=== PATIENT | female | born 1990 | race Hispanic/Latino ===

== ENCOUNTER 2019-11-03 14:55 | Emergency (ER) | payer SELFPAY ==
[2019-11-03] MEDS ORDERED: KETOROLAC 30 MG/ML INJ ONE (15:54)
[2019-11-03 16:22] VITALS: BP 159/101; TEMP 98.5; O2SAT 98
--- NOTE | 2019-11-03 20:15 | ER ---
Nurse's Notes [facility] Name: Kaitlin Marrufo Age: 29 yrs Sex: Female : 1990 Arrival Date: 11/03/2019 Time: 14:59 Bed 23 Private MD: Diagnosis: Jaw pain-left upper and left lower Presentation: 11/02 15:12 Chief complaint: Patient states: Left sided tooth and gum pain to upper and lower side ll1 for 2 months intermittently. Pain is severe today. Coronavirus screen: Proceed with normal triage. Patient denies a cough. Patient denies shortness of breath or difficulty breathing. Patient denies measured and/or subjective temperature greater than 100.4F prior to today's visit. Patient denies travel on a cruise ship or to a country the [facility] currently lists as an affected area. Patient denies contact with known and/or suspected case of COVID-19. Ebola Screen: Patient denies travel to an Ebola-affected area in the 21 days before illness onset. Initial Sepsis Screen: Does the patient meet any 2 criteria? No. Patient's initial sepsis screen is negative. Risk Assessment: Do you want to hurt yourself or someone else? Patient reports no desire to harm self or others. Onset of symptoms was October 17, 2019. 15:12 Method Of Arrival: Ambulatory ll1 15:12 Acuity: KARI 4 ll1 Historical: - Allergies: 15:14 No Known Allergies; ll1 - PSHx: 15:14 None; ll1 - Immunization history:: Adult Immunizations up to date. - Social history:: Smoking status: Patient reports the use of cigarette tobacco products, smokes one-half pack cigarettes per day, Patient uses alcohol, only on a social basis. street drugs, marijuana, Patient/guardian denies using IV drugs. Screenin:29 Abuse screen: Denies threats or abuse. Denies injuries from another. Nutritional ss screening: No deficits noted. Tuberculosis screening: Never had TB. Fall Risk None identified. Assessment: 15:29 General: Appears in no apparent distress. comfortable, Behavior is calm, cooperative. ss Pain: Complains of pain in upper left second molar and lower left second molar Pain currently is 8 out of 10 on a pain scale. Quality of pain is described as aching. Neuro: Level of Consciousness is awake, alert, obeys commands, Oriented to person, place, time, situation. Cardiovascular: Capillary refill < 3 seconds is brisk in bilateral fingers. Respiratory: Airway is patent Respiratory effort is even, unlabored, Respiratory pattern is regular, symmetrical. GI: Patient currently denies diarrhea, nausea, vomiting. : No signs and/or symptoms were reported regarding the genitourinary system. EENT: Nares are clear Oral mucosa is moist. Poor dentition noted. Throat is clear. Derm: Skin is intact, is healthy with good turgor, Skin is dry, Skin is pink, warm \T\ dry. normal. Musculoskeletal: Circulation, motion, and sensation intact. Range of motion: intact in all extremities, Swelling absent. Vital Signs: 15:12 BP 159 / 101; Pulse 77; Resp 16; Temp 98.5; Pulse Ox 98% ; Pain 9/10; ll1 ED Course: 14:59 Patient arrived in ED. fj1 15:14 Triage completed. 1 15:14 Arm band placed on Patient notified of wait time. [facility] 15:25 Fletcher Prado PA is PHCP. cp 15:25 Fletcher Tapia MD is Attending Physician. cp 15:28 Lina Haque, FARSHAD is Primary Nurse. ss 15:29 Patient has correct armband on for positive identification. Bed in low position. Call ss light in reach. 15:50 No provider procedures requiring assistance completed. Patient did not have IV access ss during this emergency room visit. Administered Medications: 15:50 Drug: TORadol 30 mg Route: IM; Site: left gluteus; ss 16:07 Follow up: Response: No adverse reaction ss Outcome: 15:47 Discharge ordered by MD. cp 15:50 Discharge instructions given to patient, Instructed on discharge instructions, follow ss up and referral plans. medication usage, Demonstrated understanding of instructions, follow-up care, medications, Prescriptions given X 3. 16:06 Discharged to home ambulatory. ss 16:06 Condition: good 16:15 Patient left the ED. ss Signatures: Lina Haque RN RN Fletcher Prado PA PA cp James, Frank 1 Nadia Dow RN RN [facility]
--- NOTE | 2019-11-03 20:15 | EDPHYS ---
Physician Documentation [facility] Name: Kaitlin Marrufo Age: 29 yrs Sex: Female : 1990 Arrival Date: 11/03/2019 Time: 14:59 Bed 23 Private MD: ZEUS Physician Fletcher Tapia HPI: 11/02 15:41 This 29 yrs old Female presents to ER via Ambulatory with complaints of cp Toothache, Facial Swelling. 15:41 The patient presents with broken tooth/teeth, pain. The problem is located in the left cp upper and left lower jaw. Onset: The symptoms/episode began/occurred 1 year(s) ago, and became worse 2 month(s) ago. Duration: The symptoms are intermittent. Associated signs and symptoms: Pertinent positives: inability to eat, Pertinent negatives: anorexia, dysphagia, fever, vomiting. Historical: - Allergies: 15:14 No Known Allergies; ll1 - PSHx: 15:14 None; ll1 - Immunization history:: Adult Immunizations up to date. - Social history:: Smoking status: Patient reports the use of cigarette tobacco products, smokes one-half pack cigarettes per day, Patient uses alcohol, only on a social basis. street drugs, marijuana, Patient/guardian denies using IV drugs. ROS: 15:43 Constitutional: Negative for body aches, chills, fever, poor PO intake. cp 15:43 Eyes: Negative for injury, pain, redness, and discharge. cp 15:43 ENT: Positive for dental pain, Negative for ear pain, sore throat, difficulty swallowing, difficulty handling secretions. 15:43 Cardiovascular: Negative for chest pain. 15:43 Respiratory: Negative for cough, shortness of breath, wheezing. 15:43 Abdomen/GI: Negative for abdominal pain, nausea, vomiting, diarrhea. 15:43 Skin: Negative for rash. 15:43 Neuro: Negative for headache, numbness, weakness. 15:43 All other systems are negative. Exam: 15:45 Constitutional: The patient appears in no acute distress, alert, awake, non-toxic, well cp developed, well nourished, uncomfortable. 15:45 Head/Face: Normocephalic, atraumatic. cp 15:45 Eyes: Periorbital structures: appear normal, Conjunctiva: normal, no exudate, no injection, Lids and lashes: appear normal, bilaterally. 15:45 ENT: External ear(s): are unremarkable, Ear canal(s): are normal, clear, TM's: bulging, is not appreciated, bilaterally, dullness, bilaterally, erythema, is not appreciated, bilaterally, Nose: is normal, Mouth: Lips: moist, Oral mucosa: pink and intact, moist, Posterior pharynx: is normal, airway is patent, no erythema, no exudate, Dental exam: abscess, is not appreciated, dental caries, that is moderate, diffusely, fractured teeth are noted, diffusely, gum swelling, not appreciated, missing teeth, diffusely, pain, that is moderate, specifically in the left upper jaw and right upper jaw, Voice: is normal. 15:45 Neck: Lymph nodes: no appreciated lymphadenopathy. 15:45 Chest/axilla: Inspection: normal. 15:45 Cardiovascular: Rate: normal. 15:45 Respiratory: the patient does not display signs of respiratory distress, Respirations: normal. 15:45 Skin: abscess, not appreciated, cellulitis, is not appreciated. Vital Signs: 15:12 BP 159 / 101; Pulse 77; Resp 16; Temp 98.5; Pulse Ox 98% ; Pain 9/10; ll1 MDM: 15:25 Patient medically screened. thais 15:45 Differential diagnosis: dental caries, gingivitis, dental abscess, pericoronitis. cp 15:46 ED course: no results found for patient on website of [place] prescription monitoring cp program. 15:47 Data reviewed: vital signs, nurses notes, and as a result, I will discharge patient. cp 15:47 Counseling: I had a detailed discussion with the patient and/or guardian regarding: the cp historical points, exam findings, and any diagnostic results supporting the discharge/admit diagnosis, the need for outpatient follow up, a dentist, to return to the emergency department if symptoms worsen or persist or if there are any questions or concerns that arise at home. Response to treatment: the patient's symptoms have mildly improved after treatment, and as a result, I will discharge patient. Administered Medications: 15:50 Drug: TORadol 30 mg Route: IM; Site: left gluteus; ss 16:07 Follow up: Response: No adverse reaction ss Disposition: 17:07 Co-signature as Attending Physician, Fletcher Tapia MD I agree with the assessment and thais plan of care. Disposition: 11/03/19 15:47 Discharged to Home. Impression: Jaw pain - left upper and left lower. - Condition is Stable. - Discharge Instructions: Dental Caries, Adult, Dental Pain, Diet and Dental Disease, Preventive Dental Care, Adult. - Prescriptions for Amoxicillin 875 mg Oral Tablet - take 1 tablet by ORAL route every 12 hours for 10 days; 20 tablet. Ibuprofen 800 mg Oral Tablet - take 1 tablet by ORAL route every 8 hours As needed take with food; 30 tablet. Tramadol 50 mg Oral Tablet - take 1 tablet by ORAL route every 8 hours as needed; 12 tablet. - Work release form, Medication Reconciliation Form, Thank You Letter, Antibiotic Education, Prescription Opioid Use form. - Follow up: Private Physician; When: 2 - 3 days; Reason: Recheck today's complaints. - Problem is an ongoing problem. - Symptoms have improved. Signatures: Fletcher Tapia MD MD cha Smirch, Shelby RN RN ss Fletcher Prado PA PA cp Lewis, Lynsay RN RN ll1 Corrections: (The following items were deleted from the chart) 15:50 15:42 Urine Test ordered. cp ss 16:15 15:47 11/03/2019 15:47 Discharged to Home. Impression: Jaw pain - left upper and left ss lower. Condition is Stable. Forms are Medication Reconciliation Form, Thank You Letter, Antibiotic Education, Prescription Opioid Use. Follow up: Private Physician; When: 2 - 3 days; Reason: Recheck today's complaints. Problem is an ongoing problem. Symptoms have improved. cp
== END 2019-11-03 16:15 | disposition home or self-care (01) ==
LOC: ER 14:55
DX: R68.84 Jaw pain (principal); F17.210 Nicotine dependence, cigarettes, uncomplicated
CPT/HCPCS: 96372; 99283

== ENCOUNTER 2019-12-26 02:55 | Emergency (ER) | payer SELFPAY ==
[2019-12-26 03:58] LABS: Urine Blood 3+ (NEG); Urine Glucose NEGATIVE (NEG); Urine Protein NEGATIVE (NEG); Urine pH 5.5 (5.0-7.0)
[2019-12-26] MEDS ORDERED: ACETAMINOPHEN 500 MG TAB ONE (04:07)
--- NOTE | 2019-12-26 05:08 | EDPHYS ---
Physician Documentation [facility] Name: Kaitlin Marrufo Age: 29 yrs Sex: Female : 1990 Arrival Date: 12/26/2019 Time: 02:57 Bed 17 Private MD: ED Physician Ton Solares HPI: 12/25 04:09 This 29 yrs old Female presents to ER via Ambulatory with complaints of mh7 Shortness Of Breath, Chills. 04:11 The patient or guardian reports cough, that is intermittent, with no sputum, difficulty mh7 breathing, . Onset: The symptoms/episode began/occurred 3 day(s) ago. Severity of symptoms: At their worst the symptoms were moderate, yesterday, in the emergency department the symptoms have improved, markedly. Modifying factors: The symptoms are alleviated by nothing, the symptoms are aggravated by nothing. Associated signs and symptoms: Pertinent positives: fever, chills, body aches. Historical: - Allergies: 03:07 No Known Allergies; sg - PMHx: 05:17 None; sg - PSHx: 03:07 None; sg - Immunization history:: Adult Immunizations not up to date. - Social history:: Smoking status: Patient denies any tobacco usage or history of. ROS: 04:11 Eyes: Negative for injury, pain, redness, and discharge, ENT: Negative for injury, mh7 pain, and discharge, Neck: Negative for injury, pain, and swelling, Cardiovascular: Negative for chest pain, palpitations, and edema, Abdomen/GI: Negative for abdominal pain, nausea, vomiting, diarrhea, and constipation, Back: Negative for injury and pain, : Negative for injury, bleeding, discharge, and swelling, MS/Extremity: Negative for injury and deformity, Skin: Negative for injury, rash, and discoloration, Neuro: Negative for headache, weakness, numbness, tingling, and seizure, Psych: Negative for depression, anxiety, suicide ideation, homicidal ideation, and hallucinations, Allergy/Immunology: Negative for hives, rash, and allergies, Endocrine: Negative for neck swelling, polydipsia, polyuria, polyphagia, and marked weight changes, Hematologic/Lymphatic: Negative for swollen nodes, abnormal bleeding, and unusual bruising. Exam: 04:11 Constitutional: This is a well developed, well nourished patient who is awake, alert, mh7 and in no acute distress. Head/Face: Normocephalic, atraumatic. Eyes: Pupils equal round and reactive to light, extra-ocular motions intact. Lids and lashes normal. Conjunctiva and sclera are non-icteric and not injected. Cornea within normal limits. Periorbital areas with no swelling, redness, or edema. ENT: Nares patent. No nasal discharge, no septal abnormalities noted. Tympanic membranes are normal and external auditory canals are clear. Oropharynx with no redness, swelling, or masses, exudates, or evidence of obstruction, uvula midline. Mucous membranes moist. Neck: Trachea midline, no thyromegaly or masses palpated, and no cervical lymphadenopathy. Supple, full range of motion without nuchal rigidity, or vertebral point tenderness. No Meningismus. Chest/axilla: Normal chest wall appearance and motion. Nontender with no deformity. No lesions are appreciated. Cardiovascular: Regular rate and rhythm with a normal S1 and S2. No gallops, murmurs, or rubs. Normal PMI, no JVD. No pulse deficits. Respiratory: Lungs have equal breath sounds bilaterally, clear to auscultation and percussion. No rales, rhonchi or wheezes noted. No increased work of breathing, no retractions or nasal flaring. Abdomen/GI: Soft, non-tender, with normal bowel sounds. No distension or tympany. No guarding or rebound. No evidence of tenderness throughout. Back: No spinal tenderness. No costovertebral tenderness. Full range of motion. Skin: Warm, dry with normal turgor. Normal color with no rashes, no lesions, and no evidence of cellulitis. MS/ Extremity: Pulses equal, no cyanosis. Neurovascular intact. Full, normal range of motion. Neuro: Awake and alert, GCS 15, oriented to person, place, time, and situation. Cranial nerves II-XII grossly intact. Motor strength 5/5 in all extremities. Sensory grossly intact. Cerebellar exam normal. Normal gait. Psych: Awake, alert, with orientation to person, place and time. Behavior, mood, and affect are within normal limits. Vital Signs: 03:17 BP 106 / 78; Pulse 95; Resp 18; Temp 98.7; Pulse Ox 98% ; wh 05:00 BP 116 / 81; Pulse 89; Resp 16; Pulse Ox 99% on R/A; MDM: 03:41 Patient medically screened. [facility] 05:05 Differential Diagnosis: Bronchitis Influenza Upper Respiratory Infection Viral Syndrome [facility] Pneumonia. Data reviewed: vital signs, nurses notes, lab test result(s), Flu: urinalysis, radiologic studies, plain films. Data interpreted: Pulse oximetry: on room air is 98 %. Interpretation: normal. Counseling: I had a detailed discussion with the patient and/or guardian regarding: the historical points, exam findings, and any diagnostic results supporting the discharge/admit diagnosis, lab results, radiology results, the need for outpatient follow up, to return to the emergency department if symptoms worsen or persist or if there are any questions or concerns that arise at home. Response to treatment: the patient's symptoms have resolved after treatment, the patient's blood pressure is in an acceptable range, mental status has returned to baseline, the patient no longer shows bradycardia, the patient is not short of breath, the patient is not tachycardic, the patient's pain is gone, the patient's temperature has normalized. 12/25 03:43 Order name: Influenza Screen (a \T\ B) [facility] 12/25 03:43 Order name: Rapid Strep [facility] 12/25 03:43 Order name: COVID-19 [facility] 12/25 03:55 Order name: Urine --Ancillary (enter results); Complete Time: 04:49 tt 12/25 03:55 Order name: Urine Dipstick--Ancillary (enter results); Complete Time: 04:49 [facility] 12/25 05:04 Order name: Urine Culture 12/25 03:43 Order name: Urine Dipstick-Ancillary (obtain specimen); Complete Time: 04:09 [facility] 12/25 03:43 Order name: Urine Test (obtain specimen); Complete Time: 04:09 [facility] 12/25 03:43 Order name: Chest Single View XRAY [facility] 12/25 05:04 Order name: Urine Microscopic Only 12/25 05:11 Order name: Throat Culture EDMS Administered Medications: 04:09 Drug: Tylenol 1000 mg Route: PO; 05:21 Follow up: Response: No adverse reaction Disposition: 12/26/19 05:07 Discharged to Home. Impression: Viral syndrome, Urinary tract infection, site not specified. - Condition is Stable. - Discharge Instructions: Urinary Tract Infection, Adult, Jjse-cq-Lemm, Viral Respiratory Infection, Xllc-Rh-Facp. - Prescriptions for Keflex 500 mg Oral Capsule - take 1 capsule by ORAL route every 12 hours for 7 days; 14 capsule. Zithromax Z- Lazaro 250 mg Oral Tablet - take 1 tablet by ORAL route as directed for 5 days Day 1 - take two (2) tablets one time. Day 2, 3, 4 , 5 take one (1) tablet once daily.; 6 tablet. Albuterol Sulfate 90 mcg/actuation - inhale 1-2 puff by INHALATION route every 4-6 hours; 1 Inhaler. - Work release form, Medication Reconciliation Form, Thank You Letter, Antibiotic Education, Prescription Opioid Use form. - Follow up: Private Physician; When: 1 - 2 days; Reason: Worsening of condition, Recheck today's complaints, Continuance of care, Re-evaluation by your physician. Follow up: Emily Bolanos MD; When: 1 - 2 days; Reason: Worsening of condition, Recheck today's complaints. - Problem is new. - Symptoms have improved. Signatures: Dispatcher [employer] EDQuinn Kellogg RN RN León Traore Maurice, MD MD mh7 Corrections: (The following items were deleted from the chart) 05:21 05:07 12/26/2019 05:07 Discharged to Home. Impression: Viral syndrome; Urinary tract wh infection, site not specified. Condition is Stable. Forms are Medication Reconciliation Form, Thank You Letter, Antibiotic Education, Prescription Opioid Use. Follow up: Private Physician; When: 1 - 2 days; Reason: Worsening of condition, Recheck today's complaints, Continuance of care, Re-evaluation by your physician. Follow up: Emily Bolanos; When: 1 - 2 days; Reason: Worsening of condition, Recheck today's complaints. Problem is new. Symptoms have improved. mh7
--- NOTE | 2019-12-26 05:08 | ER ---
Nurse's Notes [facility] Name: Kaitlin Marrufo Age: 29 yrs Sex: Female : 1990 Arrival Date: 12/26/2019 Time: 02:57 Bed 17 Private MD: Diagnosis: Viral syndrome;Urinary tract infection, site not specified Presentation: 12/25 03:04 Chief complaint: Patient states: Fever, unsure how high at home, reports chills and sg shortness of breath as well. Symptoms began 1-2 days ago, worsening today. Coronavirus screen: Patient reports a cough. Patient reports shortness of breath or difficulty breathing. Patient reports a measured and/or subjective temperature greater than 100.4F. Patient denies travel on a cruise ship or to a country the [facility] currently lists as an affected area. Patient denies contact with known and/or suspected case of COVID-19. Patient instructed to continue to wear a mask when interacting with others. Patient moved to private room, placed in contact and droplet isolation with eye protection until further assessment. Ebola Screen: Patient negative for fever greater than or equal to 101.5 degrees Fahrenheit, and additional compatible Ebola Virus Disease symptoms Patient denies exposure to infectious person. Patient denies travel to an Ebola-affected area in the 21 days before illness onset. No symptoms or risks identified at this time. Initial Sepsis Screen: Does the patient meet any 2 criteria? No. Patient's initial sepsis screen is negative. Does the patient have a suspected source of infection? No. Patient's initial sepsis screen is negative. Risk Assessment: Do you want to hurt yourself or someone else? Patient reports no desire to harm self or others. Onset of symptoms was December 26, 2019. Care prior to arrival: None. Transition of care: patient was not received from another setting of care. 03:04 Acuity: KARI 4 sg 03:04 Method Of Arrival: Ambulatory Triage Assessment: 03:18 Respiratory: Onset: The symptoms/episode began/occurred just prior to arrival, the patient reports symptoms have resolved. Historical: - Allergies: 03:07 No Known Allergies; sg - PMHx: 05:17 None; sg - PSHx: 03:07 None; sg - Immunization history:: Adult Immunizations not up to date. - Social history:: Smoking status: Patient denies any tobacco usage or history of. Screenin:18 Abuse screen: Denies threats or abuse. Denies injuries from another. Nutritional wh screening: No deficits noted. Tuberculosis screening: No symptoms or risk factors identified. Fall Risk None identified. Assessment: 03:17 General: Appears in no apparent distress. Behavior is calm, cooperative, appropriate wh for age. Pain: Denies pain. Neuro: Level of Consciousness is awake, alert, obeys commands, Oriented to person, place, time, situation, Appropriate for age. Cardiovascular: Heart tones S1 S2 Rhythm is regular. Respiratory: Reports shortness of breath Airway is patent Respiratory effort is even, unlabored, Respiratory pattern is regular, symmetrical, Breath sounds are clear bilaterally. GI: Abdomen is flat, non-distended. : No signs and/or symptoms were reported regarding the genitourinary system. EENT: No signs and/or symptoms were reported regarding the EENT system. Derm: Skin is intact, is healthy with good turgor, Skin is pink, warm \\T\\ dry. normal. Musculoskeletal: Circulation, motion, and sensation intact. 04:18 Reassessment: Patient appears in no apparent distress at this time. No changes from previously documented assessment. Patient and/or family updated on plan of care and expected duration. Pain level reassessed. 05:19 Reassessment: Patient appears in no apparent distress at this time. No changes from previously documented assessment. Patient and/or family updated on plan of care and expected duration. Pain level reassessed. Patient is alert/active/playful, equal unlabored respirations, skin warm/dry/pink. Vital Signs: 03:17 BP 106 / 78; Pulse 95; Resp 18; Temp 98.7; Pulse Ox 98% ; wh 05:00 BP 116 / 81; Pulse 89; Resp 16; Pulse Ox 99% on R/A; ED Course: 02:57 Patient arrived in ED. cl3 03:04 Arm band placed on. sg 03:06 Triage completed. sg 03:08 León Berman is Primary Nurse. 03:18 Patient has correct armband on for positive identification. Bed in low position. Call light in reach. Side rails up X 1. Pulse ox on. NIBP on. 03:22 Ton Solares MD is Attending Physician. 7 04:01 Chest Single View XRAY In Process Unspecified. EDOH 05:06 Emily Bolanos MD is Referral Physician. [facility] 05:20 No provider procedures requiring assistance completed. Patient did not have IV access during this emergency room visit. 10:14 Health Dept notified/ PUI # [id number]/ Sara in lab notified. eb Administered Medications: 04:09 Drug: Tylenol 1000 mg Route: PO; 05:21 Follow up: Response: No adverse reaction Outcome: 05:07 Discharge ordered by . [facility] 05:20 Discharged to home ambulatory. 05:20 Condition: stable 05:20 Discharge instructions given to patient, Instructed on discharge instructions, follow up and referral plans. medication usage, POC Demonstrated understanding of instructions, follow-up care, medications, POC Prescriptions given X 3. 05:21 Patient left the ED. Addendum: 12/29/2019 16:19 Addendum: COVID-19 Result: Negative result given to RN to notify pt. Attempted to d m5 contact pt regarding negative COVID-19 swab results. Unable to leave voice mail due to the number provided was either not a working number, the voice mail has not been set up, or the voice mailbox is full.. Other: "the customer had call restrictions". Signatures: [facility]patcher [facility] ZEUS[facility] Arleen Mosquera, FARSHAD YEN dm5 Quinn Bolaños RN RN sg [place], Winsy Maria Victoria Cortes Charde 3 Ton Solares MD MD [facility]
[2019-12-26 05:26] VITALS: TEMP 98.7
[2019-12-26 05:27] VITALS: BP 116/81; O2SAT 99
[2019-12-26 05:46] LABS: Urine Bacteria 20-50 /HPF (<20); Urine Culture Reflex Order NOT NEEDED; Urine Mucus 1+ /HPF (NONE SEEN)
--- NOTE | 2019-12-26 17:29 | RAD REPORT ---
EXAM DESCRIPTION: RAD - Chest Single View - 12/26/2019 4:01 am CLINICAL HISTORY: COUGH COMPARISON: None. FINDINGS: Single frontal view of the chest. Cardiomediastinal silhouette: Normal size and contour. Lungs: No consolidation, pneumothorax, or pleural effusion. Bones: No acute osseous abnormality. Upper abdomen: No abnormality identified. IMPRESSION: 1. No acute pulmonary process identified. Electronically signed by: Naren Subramanian 12/26/2019 4:39 AM CDT Due to temporary technical issues with the PACS/Fluency reporting system, reports are being signed by the in house radiologist without review as a courtesy to ensure prompt reporting. The interpreting r adiologist is fully responsible for the content of the report.
== END 2019-12-26 05:21 | disposition home or self-care (01) ==
LOC: ER 02:55
DX: B34.9 Viral infection, unspecified (principal); Z20.828 Contact with and (suspected) exposure to other viral communicable diseases; N39.0 Urinary tract infection, site not specified
CPT/HCPCS: 71045; 81003; 81015; 81025; 87070; 87081; 87086; 87088; 87804; 99284; U0001